=== PATIENT | male | born 1945 | race Caucasian/White ===

== ENCOUNTER 2016-09-03 10:00 | Emergency (ER) | payer OTHER ==
[2016-09-03 10:04] VITALS: BP 140/66; PULSE 78; TEMP 98.2
--- NOTE | 2016-09-03 10:53 | PDOC ---
Suture Removal/Wound Check HPI - History of Present Illness Chief Complaint: Suture/Staple Removal(Here) Stated Complaint: SUTURE REMOVAL Time Seen by Provider: 09/03/16 10:16 History Source: Yes: Patient Exam Limitations: Yes: No Limitations Treated at: [facility] ED - Previous ED Treatment Type of procedure performed on last visit: Yes: Laceration Repair Tetanus Immunization: Yes: Up to Date Past History - Travel Traveled outside of the country in the last 30 days: No Close contact w/someone who was outside of country & ill: No - Past Medical History Allergies/Adverse Reactions: Allergies benzonatate Allergy (Verified 09/03/16 10:04) Difficulty Breathing Home Medications: Ambulatory Orders Levothyroxine Sodium [Synthroid] 88 mcg PO DAILY 08/18/16 General: Yes: no pertinent history - Immunization History Immunizations Up to Date: (RECEIVED TETANUS TODAY AT [facility] OFFICE) Tetanus Status: Less than 5 years - Social History Smoking Status: Never smoked Suture Removal/Wound Check PE - Physical Exam Laceration/Wound Check Symptoms: reports: None Current Severity Level: None Maximum Severity Level: None *Review of Systems - Review of Systems Able to Perform ROS?: Yes Constitutional: Yes: See HPI. No: Symptoms Reported, Malaise HEENTM: No: Symptoms Reported Musculoskeletal: Yes: Symptoms Reported, See HPI Integumentary: Yes: See HPI (no redness, swelling, exudate or evidence of cellulitis. Has some tenderness at midpoint suture line at 6 sutures intact with approximation.). 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 Steri-Strips applied allow for drying. *DC/Admit/Observation/Transfer Diagnosis at time of Disposition: Visit for suture removal - Discharge Dispostion Disposition: HOME Condition at time of disposition: Stable Admit: No - Referrals Referrals: Milad Mason MD [Primary Care Provider] - - Patient Instructions Printed Discharge Instructions: DI for Suture Removal - Post Discharge Activity
== END 2016-09-03 10:55 | disposition home or self-care (01) ==
LOC: JERFT 10:00
DX: Z48.02 Encounter for removal of sutures (principal)
CPT/HCPCS: 99281-25